=== PATIENT | male | born 2005 ===

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

== ENCOUNTER 2024-03-13 19:24 | Emergency (ER) | payer OTHER, SELFPAY ==
[2024-03-13 19:42] VITALS: BP 145/66; PULSE 124; RESP 20; TEMP 38.1; O2SAT 98; BMI 36.6
--- NOTE | 2024-03-13 19:43 | ED_ITS ---
HPI - General Adult General Chief complaint: Skin/Abscess/Foreign Body Stated complaint: ?abscess on left side Time Seen by Provider: 03/13/24 21:13 Source: patient Mode of arrival: ambulatory Limitations: no limitations History of Present Illness ED Provider: lázaro ANDERSON narrative: Patient noticed small swelling on the left side of the chest about 4 days ago getting slowly bigger with increased tenderness and erythema no history of recurrent infectious before no history of MRSA Related Data Previous Rx's ?Medication ?Instructions ?Recorded cephalexin 500 mg capsule 500 mg PO Q6H 7 days #28 caps 04/25/22 cephalexin 500 mg capsule 500 mg PO QID 10 days #40 caps 03/13/24 doxycycline hyclate 100 mg tablet 100 mg PO BID #20 tabs 03/13/24 Allergies Allergy/AdvReac Type Severity Reaction Status Date / Time No Known Allergies Allergy Verified 03/13/24 19:44 Review of Systems 2 Review of Systems: Yes all other systems are reviewed and are negative PMFSH Social History Social History Smoked in Last 30 Days: No Use of substances other than those prescribed or required for medical reasons: No Advance Directives: No Advance Directives Information Provided: No Physical Exam ED Vital Signs: Vital Signs - 24 hr 03/13/24 19:42 03/13/24 21:42 03/13/24 22:30 Temperature 100.5 F H 98.4 F 98.7 F Pulse Rate 124 H 95 100 Respiratory Rate 20 20 18 Blood Pressure 145/66 H 105/65 103/68 Pulse Oximetry 98 100 98 Oxygen Delivery Method Room Air Room Air BMI result Body Mass Index 36.6 Appearance: Alert. Oriented X3. No acute distress. ENT: Pharynx normal. Oral Mucosa moist Neck: Normal inspection. Neck supple. CVS: Normal heart rate and rhythm. Pulses normal. Respiratory: No respiratory distress. Equal air entry bilateral, no wheezing/rales/rhonchi Skin: Skin warm and dry. Normal skin color. Normal skin turgor. Abscess in the left side of the chest with surrounding erythema Extremities: No lower extremity edema. Neuro: Oriented X 3. Course Course Course Narrative: This is an RME performed by Rhonda Green CNP: Additional HPI, ROS, PE not included below will be deferred to primary provider. Patient is a 18-year-old male who presents emergency department his sister for evaluation, Concern for possible abscess to the left lower chest wall, states it initially started the size of a pimple, but now has not large reddened area that is painful to touch reports that there has been no active drainage from this area. Denies fevers or chills. He does also endorse having cough, congestion, sore throat with onset yesterday. Exam: Erythema to the left lateral chest wall concern for cellulitis, central induration though I do not appreciate in area of notable fluctuance/fluid collection. Pharynx is mildly erythematous without hypertrophy. Is found to be febrile 100.5, tachycardic 120s, meets SIRS criteria. We will obtain serum labs, blood cultures, lactic acid in addition to viral serologies and strep. 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 Medications Administered Discontinued Medications Generic Name Dose Route Start Last Admin Trade Name Freq PRN Reason Stop Dose Admin Acetaminophen 975 mg 03/13/24 19:47 03/13/24 19:50 Acetaminophen 325 Mg Tablet PO 03/13/24 19:48 975 mg ONCE ONE Administration Cephalexin HCl 500 mg 03/13/24 22:08 03/13/24 22:22 Cephalexin 500 Mg Capsule PO 03/13/24 22:09 500 mg ONCE ONE Administration Doxycycline Monohydrate 100 mg 03/13/24 22:08 03/13/24 22:22 Doxycycline Monohydrate 100 Mg Capsule PO 03/13/24 22:09 100 mg ONCE ONE Administration Procedures Abscess I/D Site: chest Side (if applicable): left Local Anesthetic: lidocaine 1% Amount of anesthesia used (mL): 5 Technique: incised with blade Amount of fluid expressed (mL): 2 Sent for culture/gram staining?: Yes Irrigation: No Packing used?: iodoform Complications: pain Medical Decision Making Lab Data MDM Lab Attestation statement: I reviewed the patient's lab results. 03/13/24 20:03 03/13/24 20:03 Labs: Lab Results 03/13/24 Range/Units 20:03 WBC 11.1 H (4.8-10.8) X10*3/uL RBC 5.52 (4.60-5.80) X10*6/uL Hgb 15.2 (14.0-18.0) g/dl Hct 44.2 (42.0-52.0) % MCV 80.1 (80.0-98.0) fL MCH 27.5 (27.0-33.0) pg MCHC 34.4 (31.0-36.0) g/dl RDW 14.6 (11.0-16.0) % Plt Count 181 (160-400) X10*3/uL MPV 10.1 (9.4-12.4) fL Immature Gran % (Auto) 0.5 H (0.0-0.4) % Neut % (Auto) 70.1 (45-73) % Lymph % (Auto) 17.6 L (20-40) % [place] % (Auto) 8.6 (2-11) % Eos % (Auto) 2.8 (0-4) % Baso % (Auto) 0.4 (0-2) % Lymph # (Auto) 2.0 (1.2-4.9) X10*3/uL [place] # (Auto) 1.0 (0.1-1.2) X10*3/uL Eos # (Auto) 0.3 (0.0-0.4) X10*3/uL Baso # (Auto) 0.0 (0.0-0.2) X10*3/uL Abs Immat Gran (auto) 0.05 H (0.00-0.03) X10*3/uL Absolute Neuts (auto) 7.8 (2.0-8.3) x10*3/uL Absolute Nucleated RBC 0.000 (0.0-0.012) X10*3/uL Nucleated RBC % (auto) 0.0 (0.0-0.2) /100WBC Sodium 137 (135-145) mmol/L Potassium 3.9 (3.3-5.1) mmol/L Chloride 105 (96-108) mmol/L Carbon Dioxide 23 (22-29) mmol/L Anion Gap 13 (12-20) BUN 9 (9-16) mg/dL Creatinine 1.03 (0.5-1.4) mg/dL Estim Creat Clear Calc 155.8 Estimated GFR > 60 Random Glucose 137 H (60-115) mg/dL Lactic Acid 1.5 (0.5-2.0) mmol/L Calcium 9.4 (8.4-10.2) mg/dL Total Bilirubin 0.8 (0.0-1.0) mg/dL AST 40 H (5-37) U/L ALT 36 (0-40) U/L Alkaline Phosphatase 85 (39-117) U/L Total Protein 7.7 (6.5-8.0) g/dL Albumin 4.3 (3.5-5.0) g/dL Influenza Type A (PCR) NEGATIVE (Negative) Influenza Type B (PCR) NEGATIVE (Negative) RSV RNA Qual (PCR) NEGATIVE (Negative) SARS-CoV-2 RNA (RT-PCR) NEGATIVE (Negative) S. pyogenes GrpA TED Negative (Negative) Discharge Plan Discharge Clinical Impression: Abscess of skin or subcutaneous tissue Patient Disposition: Home, Self-Care Instructions: Abscess Incision and Drainage (DC) Additional Instructions: Local care as advised Come to the ER for Packing removal in 2 days or to PCP office Take antibiotic as prescribed Prescriptions: New cephalexin 500 mg capsule 500 mg PO QID 10 Days Qty: 40 0RF doxycycline hyclate 100 mg tablet 100 mg PO BID Qty: 20 0RF No Action cephalexin 500 mg capsule 500 mg PO Q6H 7 Days Qty: 28 0RF Interventions: ED Discharge Assessment Last Done: 03/13/24 22:30 Discharge Date/Time: 03/13/24 22:31 Print Language: Kiswahili
--- NOTE | 2024-03-13 19:46 | ECG_ITS ---
Test Reason : TACHYCARDIA Blood Pressure : / mmHG Vent. Rate : 120 BPM Atrial Rate : 120 BPM P-R Int : 128 ms QRS Dur : 088 ms QT Int : 326 ms P-R-T Axes : 025 011 -26 degrees QTc Int : 460 ms Sinus tachycardia Minimal voltage criteria for LVH, may be normal variant ( R in aVL ) Nonspecific T wave abnormality Abnormal ECG No previous ECGs available Referred By: Louisa Green Electronically Signed By:Claude Arvizu
[2024-03-13] MEDS: Acetaminophen 325 MG TABLET 975 MG PO (19:50)
[2024-03-13 20:10] LABS: MANUAL DIFF FLAG NO
[2024-03-13 20:18] LABS: IDNOW Serial# 58CA691E; Strep A Nucleic Acid Negative (Negative)
[2024-03-13 20:25] LABS: Alanine Aminotransferase 36 U/L (0-40); Albumin Level 4.3 g/dL (3.5-5.0); Alkaline Phosphatase 85 U/L (39-117); Anion Gap 13 (12-20); Aspartate Amino Transferase 40 U/L (5-37); Bilirubin Total 0.8 mg/dL (0.0-1.0); Blood Urea Nitrogen 9 mg/dL (9-16); Calcium 9.4 mg/dL (8.4-10.2); Carbon Dioxide 23 mmol/L (22-29); Chloride 105 mmol/L (96-108); Creatinine Clr Calc Pharmacy 155.8; Estimated Glomerular Filt Rate > 60; Glucose Random 137 mg/dL (60-115); Lactic Acid 1.5 mmol/L (0.5-2.0); Potassium 3.9 mmol/L (3.3-5.1); Sodium 137 mmol/L (135-145); Total Protein 7.7 g/dL (6.5-8.0)
[2024-03-13 20:29] LABS: Basophils Percent Auto 0.4 % (0-2); Eosinophils Absolute Auto 0.3 X10*3/uL (0.0-0.4); Eosinophils Percent Auto 2.8 % (0-4); Hematocrit 44.2 % (42.0-52.0); Hemoglobin 15.2 g/dl (14.0-18.0); Imm Gran Abs Auto 0.05 X10*3/uL (0.00-0.03); Imm Gran Pct Auto 0.5 % (0.0-0.4); Lymphocytes Percent Auto 17.6 % (20-40); Mean Corpuscular HGB Conc 34.4 g/dl (31.0-36.0); Mean Corpuscular Hemoglobin 27.5 pg (27.0-33.0); Mean Corpuscular Volume 80.1 fL (80.0-98.0); Mean Platelet Volume 10.1 fL (9.4-12.4); Monocytes Percent Auto 8.6 % (2-11); Neutrophils Absolute Auto 7.8 x10*3/uL (2.0-8.3); Neutrophils Percent Auto 70.1 % (45-73); Platelet Count 181 X10*3/uL (160-400); Red Blood Count 5.52 X10*6/uL (4.60-5.80); Red Cell Distribution Width 14.6 % (11.0-16.0); White Blood Count 11.1 X10*3/uL (4.8-10.8)
[2024-03-13 20:48] LABS: Influenza A PCR NEGATIVE (Negative); Influenza B PCR NEGATIVE (Negative); Resp Syncy Virus RNA Qual PCR NEGATIVE (Negative); SARS COV2 PCR INHOUSE NEGATIVE (Negative)
--- NOTE | 2024-03-13 21:08 | PC.NURSE ---
pt from waiting room, assume care of pt at this time
[2024-03-13 21:42] VITALS: BP 105/65; PULSE 95; RESP 20; TEMP 36.9; O2SAT 100
[2024-03-13] MEDS: cephALEXin 500 MG CAPSULE PO (22:22)
[2024-03-13] MEDS: Doxycycline Monohydrate 100 MG CAPSULE PO (22:22)
[2024-03-13 22:30] VITALS: BP 103/68; PULSE 100; RESP 18; TEMP 37.1; O2SAT 98
== END 2024-03-13 22:31 | disposition home or self-care (01) ==
PROVIDERS: Nurse Practitioner Family; Emergency Provider Internal Medicine
DX: L02.213 Cutaneous abscess of chest wall (principal); R00.0 Tachycardia, unspecified; Z03.818 Encounter for observation for suspected exposure to other biological agents ruled out
CPT/HCPCS: 0241U; 10060; 80053; 83605; 85025; 87040; 87070; 87077; 87186; 87205; 87651; 93005; 99284

== ENCOUNTER → 2024-03-13 19:46 | Outpatient (BNV) | payer OTHER, SELFPAY | PROVIDERS: Emergency Provider Internal Medicine; Visit Provider Internal Medicine Cardiovascular Disease | DX: R00.0 Tachycardia, unspecified (principal) | CPT/HCPCS: 93010 ==

== ENCOUNTER 2024-03-16 08:33 | Emergency (ER) | payer OTHER, SELFPAY ==
[2024-03-16 08:35] VITALS: BP 122/86; PULSE 98; RESP 16; TEMP 37.4; O2SAT 99; BMI 36.8
--- NOTE | 2024-03-16 09:09 | ED.GENADULT ---
HPI - General Adult General Chief complaint: Wound/Laceration Stated complaint: wound check Time Seen by Provider: 03/16/24 09:08 Source: patient Mode of arrival: ambulatory Limitations: no limitations History of Present Illness ED Provider: Sheeba Santana PA-C HPI narrative: Patient is a 18 year old assigned male at with a history of recent left sided chest abscess presenting to the emergency department today for packing removal. Patient states that 2 days ago he was here with a left sided chest abscess that he had drained with packing placed. Patient states that he is here to have the packing removed and the wound re-examined. Patient denies any dizziness, lightheadedness, abdominal pain, nausea, vomiting, fever, chills, blurry vision, double vision, loss of vision, chest pain, difficulty breathing, shortness of breath, back pain, night sweats, pain with urination, increased urinary frequency, increased urinary urgency, blood in his urine or stool, syncope or a near syncopal episode, bowel incontinence, bladder incontinence, or any other complaints at this time. Patient states that he is taking his antibiotics as prescribed. Relieving factors: none Exacerbating factors: none Associated symptoms: denies other symptoms Treatments prior to arrival: none Related Data Previous Rx's ?Medication ?Instructions ?Recorded cephalexin 500 mg capsule 500 mg PO Q6H 7 days #28 caps 04/25/22 cephalexin 500 mg capsule 500 mg PO QID 10 days #40 caps 03/13/24 doxycycline hyclate 100 mg tablet 100 mg PO BID #20 tabs 03/13/24 Allergies Allergy/AdvReac Type Severity Reaction Status Date / Time No Known Allergies Allergy Verified 03/16/24 08:38 Review of Systems Constitutional: Constitutional: Reports no additional constitutional complaints, Denies chills, Denies fever(s) and Denies night sweats Eyes: Eyes: Reports no additional eye complaints, Denies blurry vision, Denies change in vision, Denies diplopia, Denies eye discharge, Denies loss of vision and Denies eye pain ENT: Denies dizziness Cardiovascular: Cardiovascular: Reports no additional cardiovascular complaints, Denies chest pain, Denies lightheadedness, Denies Loss of Consciousness and Denies dyspnea Respiratory: Respiratory: Reports no additional respiratory complaints and Denies dyspnea Gastrointestinal: Gastrointestinal: Reports no additional gastrointestinal complaints, Denies abdominal pain, Denies melena, Denies hematochezia, Denies change in bowel habits and Denies change in stool character Genitourinary: Genitourinary: Reports no additional male genitourinary complaints, Denies hematuria, Denies oliguria, Denies difficulty urinating, Denies dysuria, Denies urinary frequency, Denies urinary hesitancy, Denies urinary incontinence and Denies urinary urgency Musculoskeletal: Musculoskeletal: Reports no additional musculoskeletal complaints, Denies numbness and Denies tingling Integumentary/Breasts: Comments: left chest abscess Neurologic: Denies dizziness, Denies loss of vision, Denies numbness and Denies tingling Psychiatric: Psychiatric: Reports no additional psychiatric complaints Endocrine: Endocrine: Reports no additional endocrine complaints Hematologic/Lymphatic: Hematologic/Lymphatic: Reports no additional hematologic/lymphatic complaints Allergic/Immunologic: Allergic/Immunologic: Reports no additional allergic/immunologic complaints PMFSH Past Medical History Attestation statement: The following information was validated with the patient. Source: old records reviewed and nursing notes reviewed Social History Social History Advance Directives: No Advance Directives Information Provided: Yes Do you have a plan to hurt others: No Plan Physical Exam ED Vital Signs: Vital Signs - 24 hr 03/16/24 08:35 03/16/24 10:11 Temperature 99.3 F 99.3 F Pulse Rate 98 98 Respiratory Rate 16 16 Blood Pressure 122/86 122/86 Pulse Oximetry 99 99 Oxygen Delivery Method Room Air Room Air BMI result Body Mass Index 36.8 Const General: cooperative, no acute distress, alert and awake Nutritional Appearance: well nourished Orientation/consciousness: patient oriented x3 Limitations: no limitations [facility] Head: Yes normal to inspection and Yes atraumatic Ears: hearing grossly normal bilaterally and external ears normal General nose exam: Normal external nose present, no nasal discharge noted and no epistaxis Face and sinus: Yes normal facial exam, No abrasion and No laceration Mouth: Normal oral and palatal mucosa present, no drooling and no muffled voice Eyes General: appearance normal, both eyes and all related structures Periorbital: periorbital findings normal Eyelids: Yes eyelids normal Conjunctivae: conjunctivae normal Pupils: Equal, round and reactive pupils present EOM: EOMs intact bilaterally Neck Neck: Yes normal visual inspection, Yes full ROM and Yes no lymphadenopathy Chest Chest/axillae images: 1. small hole with packing visible, no surrounding erythema or warmth Resp Effort & Inspection: normal respiratory effort and able to speak in complete sentences GI Inspection: Yes normal to inspection Neuro General: patient oriented x3 and moves all extremities Cranial nerves: Yes Equal, round and reactive pupils present Cognition (Neuro): normal cognition Extrem General: Yes normal to inspection, Yes full ROM and Yes capillary refill normal Psych Appearance: grossly normal Mental Status: mental status grossly normal Affect: normal affect Attitude: cooperative Thought process: Normal thought process present Thought content: Normal thought content present Insight: Good insight present (Psych) Medical Decision Making Medical Decision Making MDM Narrative: Patient is a 18 year old assigned male at with a history of recent left sided chest abscess presenting to the emergency department today for packing removal. Patient's physical exam was as noted in the physical exam portion of this note. Patient's packing was removed, without incident. Patient's wound was dressed, without incident. I explained my physical exam findings to the patient. I answered all questions asked by the patient. I stressed the importance of the patient taking his medication as directed (either prescribed or as the over the counter packaging recommends). I stressed the importance of the patient following up with his primary care provider and a general surgeon. I stressed the importance of the patient returning to the emergency department immediately if his symptoms were to worsen or if he were to develop any dizziness, shortness of breath, difficulty breathing, chest pain, blurry vision, loss of vision, nausea, vomiting, abdominal pain, fever, chills, back pain, or any other complaints. Patient verbalized agreement and understanding with this treatment plan and discharge. Differential Diagnosis Differential Diagnoses: The differential diagnosis associated with the presentation includes Abscess Packing removal Admission/Observation Consideration of admission/observation: Escalation of care including admission/observation considered Patient would have been admitted to the hospital had his clinical presentation warranted hospital admission. Prescription Management I considered prescription management with: Antibiotic (patient on course - encouraged to continue ) Discharge Plan Discharge Clinical Impression: Abscess packing removal Patient Disposition: Home, Self-Care Instructions: Bandage Change (ED) Additional Instructions: Continue taking your antibiotic as prescribed. Continue allowing the wound to drain. Follow up with your primary care provider and a general surgeon. Return to the emergency department immediately if your symptoms worsen or if you develop any dizziness, shortness of breath, difficulty breathing, chest pain, blurry vision, loss of vision, nausea, vomiting, abdominal pain, fever, chills, back pain, or any other complaints. Prescriptions: No Action cephalexin 500 mg capsule 500 mg PO Q6H 7 Days Qty: 28 0RF cephalexin 500 mg capsule 500 mg PO QID 10 Days Qty: 40 0RF doxycycline hyclate 100 mg tablet 100 mg PO BID Qty: 20 0RF Referrals: [facility] [place] Group] (Call to establish and follow up with a general surgeon to follow up on the abscessed area. ) [facility] [place]] (Call to establish and follow up with a primary care provider. If you already have a primary care provider, please follow up with them.) [facility] [place] [facility] [Provider Group] (Call to establish and follow up with a primary care provider. If you already have a primary care provider, please follow up with them.) [facility] [place] [facility] [Provider Group] (Call to establish and follow up with a primary care provider. If you already have a primary care provider, please follow up with them.) Stand Alone Forms: Work/School Release Interventions: ED Discharge Assessment Last Done: 03/16/24 10:11 Discharge Date/Time: 03/16/24 10:12 Print Language: Hebrew
[2024-03-16 10:11] VITALS: BP 122/86; PULSE 98; RESP 16; TEMP 37.4; O2SAT 99
== END 2024-03-16 10:12 | disposition home or self-care (01) ==
PROVIDERS: Emergency Provider Emergency Medicine Emergency Medical Services
DX: Z48.01 Encounter for change or removal of surgical wound dressing (principal)
CPT/HCPCS: 99282

== ENCOUNTER 2024-03-23 09:54 | Outpatient (AMB) | payer OTHER, SELFPAY ==
--- NOTE | 2024-03-23 09:59 | MHC.OFFVIS ---
Vital Signs 03/23/24 10:02 Height 6 ft 1 in Weight 283 lb BMI 37.3 BP 134/74 Blood Pressure Location Rt brachial Position Sitting Pulse 95 Intake Visit Reasons: cyst with packing from the ER Intake Note: Patient referred after ER visit for abscess on Lt flank/ chest. On Cephalexin, doxycycline course. Patient c/o: infection flares for the past 2yrs. Mom state lesion feels had to touch. Denies oozing, pain. Sr Community Manager Required: No Accompanied by: mom Lady Garg Allergies No Known Allergies Allergy (Verified 03/23/24 10:00) HPI Comments Details: Patient presents with a family member. He underwent I&D of the left sub axillary abscess little over week ago and presents here for follow-up. The patient has minimal wound symptoms. PFS Family History (Updated 03/23/24 @ 10:02 by ZEHRA Gayle) Maternal Grandfather Colon cancer Father HTN (hypertension) Social History (Updated 03/23/24 @ 10:02 by ZEHRA Gayle) Patient Tobacco Use Status: Never used Tobacco Physical Exam Vital Signs: Last Vital Signs Pulse 95 03/23/24 10:02 BP 134/74 03/23/24 10:02 BMI result Body Mass Index 37.3 Extrem Other: Patient has complete healing of the I&D site of the left sub axillary area. No evidence of any cellulitis or abscess. Assessment & Plan Assessment & Plan (1) Status post incision and drainage: Code(s): Z98.890 - Other specified postprocedural states Category: Medical Plan Patient and family member have been given local instructions and will otherwise follow-up p.r.n.. Should this process recur, they have been instructed to call the office. Otherwise they will follow-up as needed. All questions answered. Coding Level of Care Code New Pt Level 4 (01246) Diagnoses Status post incision and drainage Z98.890
[2024-03-23 10:02] VITALS: BP 134/74; PULSE 95; BMI 37.3
== END 2024-03-23 10:08 | disposition home or self-care (01) ==
PROVIDERS: Visit Provider Surgery
DX: Z98.890 Other specified postprocedural states (principal)
CPT/HCPCS: 99204

== ENCOUNTER → 2024-03-23 09:54 | Outpatient (BNVA) | payer OTHER, SELFPAY | PROVIDERS: Visit Provider Surgery | DX: Z09 Encounter for follow-up examination after completed treatment for conditions other than malignant neoplasm (principal); Z98.890 Other specified postprocedural states | CPT/HCPCS: 99202 ==